=== PATIENT | female | born 1960 | race Caucasian/White ===

== ENCOUNTER 2021-11-23 14:43 | Emergency (ER) | payer BC ==
[~2021-11-23] VITALS: Ht 167.6 cm; Wt 70.3 kg
[2021-11-23] MEDS ORDERED: MULTI VITAMIN1 EACH PO (15:05)
== END 2021-11-23 21:41 | disposition home or self-care (01) ==
LOC: ER 14:43
DX: G45.9 Transient cerebral ischemic attack, unspecified (principal); R41.0 Disorientation, unspecified